=== PATIENT | female | born 1980 | race Caucasian/White ===

== ENCOUNTER → 2019-01-31 | Outpatient (CLI) | payer BC | END | disposition home or self-care (01) | LOC: LAB 19:33 → LAB SHORT 19:33 | DX: E66.9 Obesity, unspecified (principal) | CPT/HCPCS: 87529 ==

== ENCOUNTER → 2019-10-12 | Outpatient (CLI) | payer BC | END | disposition home or self-care (01) | LOC: LAB SHORT 12:04 → PLD 12:04 | DX: D22.5 Melanocytic nevi of trunk (principal); D18.01 Hemangioma of skin and subcutaneous tissue | CPT/HCPCS: 88305 ==